=== PATIENT | male | born 1960 | race Caucasian/White ===

== ENCOUNTER 2023-05-14 07:00 | Day surgery (SDC) | payer OTHER ==
[~2023-05-14] VITALS: Ht 175.3 cm; Wt 80.3 kg
[~2023-05-14 07:00] MED LIST: ceFAZolin SODIUM 2 GM in D5W 100 ML IV ONE
[2023-05-14] MEDS ORDERED: SEVOFLURANE 15 MIN GAS INH ONE (08:58)
[2023-05-14] MEDS ORDERED: ROCURONIUM BROMIDE 10 MG/ML (ZEMURON) ONE (08:58)
[2023-05-14] MEDS ORDERED: BUPIVACAINE /PF 0.25% 30 ML VIAL INJ ONE (08:58)
[2023-05-14] MEDS ORDERED: ONDANSETRON HCL 4 MG/2 ML VIAL ONE (08:58)
[2023-05-14] MEDS ORDERED: SUCCINYLCHOLINE CHLORIDE 20 MG/ML(QUELICIN) ONE (08:58)
[2023-05-14] MEDS ORDERED: PROPOFOL 200MG/ 20ML VIAL (DIPRIVAN) IV ONE (08:58)
[2023-05-14] MEDS ORDERED: fentaNYL CITRATE/PF 100 MCG/2 ML AMP ONE (08:58)
[2023-05-14] MEDS ORDERED: NEOSTIGMINE METHYLSULFATE 1 MG/ML, 10 ML VIAL ONE (08:58)
[2023-05-14] MEDS ORDERED: MIDAZOLAM HCL/PF 2 MG/2 ML SYRINGE ONE (08:58)
[2023-05-14] MEDS ORDERED: WATER FOR IRRIGATION,STERILE 1,000 ML IRRIG.SOLN IR ONE (08:58)
[2023-05-14] MEDS ORDERED: NS IRRIG SOLN 1000 ML IR ONE (08:58)
[2023-05-14] MEDS ORDERED: GLYCOPYRROLATE 0.2 MG/ML VIAL ONE (08:58)
[2023-05-14 10:01] VITALS: O2SAT 99
[2023-05-14] MEDS ORDERED: ONDANSETRON HCL 4 MG/2 ML VIAL IVP PRN (10:45)
[2023-05-14] MEDS ORDERED: ACETAMINOPHEN I.V. 1000 MG 100 ML IV ONE (10:45)
[2023-05-14] MEDS ORDERED: KETOROLAC TROMETHAMINE 30 MG VIAL IVP PRN (10:45)
[2023-05-14] MEDS ORDERED: METOCLOPRAMIDE HCL 10 MG/2 ML VIAL IVP PRN (10:45)
[2023-05-14] MEDS ORDERED: HYDROmorphone 1 MG/ML INJ. CARTRIDGE IVP PRN (10:45)
[2023-05-14 16:57] VITALS: BP_SYST 126; PULSE 67; RESP 18
== END 2023-05-14 14:43 | disposition home or self-care (01) ==
LOC: SDS 07:00 → SMU 07:01 → SDS 14:43
PROVIDERS: ATTEND Surgery
DX: K40.20 Bilateral inguinal hernia, without obstruction or gangrene, not specified as recurrent (principal); I10 Essential (primary) hypertension; E11.69 Type 2 diabetes mellitus with other specified complication; E78.5 Hyperlipidemia, unspecified; G47.30 Sleep apnea, unspecified; E66.3 Overweight; Z68.26 Body mass index [BMI] 26.0-26.9, adult; Z88.8 Allergy status to other drugs, medicaments and biological substances; Z79.899 Other long term (current) drug therapy; Z82.49 Family history of ischemic heart disease and other diseases of the circulatory system
CPT/HCPCS: 87081; 49650; J2710; S2900; J3490 ×2; J3465; J2405; J2704; J0330; J3010; J7060; C1727; C1781